=== PATIENT | male | born 1945 | race Caucasian/White ===

== ENCOUNTER 2018-02-28 22:49 | Emergency (ER) | payer BC, MEDICARE ==
[2018-02-28] MEDS ORDERED: Adenosine* 3 MG/ML VIAL IV ONE (23:00)
[2018-02-28] MEDS ORDERED: NS 0.9% 1000 ML* 1,000 ML IV ONE (23:05)
[2018-02-28] MEDS ORDERED: Adenosine SYRINGE* 6 MG/2 ML IV PUSH ONE ×2 (23:05→23:48)
[2018-02-28 23:20] LABS: ABS Basophils 0.1 10^3/ul (0-0.2); ABS Eosinophils 0.3 10^3/ul (0-0.6); ABS Lymphocytes 2.5 10^3/ul (1.0-4.8); ABS Monocytes 0.8 10^3/ul (0-0.8); ABS Neutrophils 4.3 10^3/ul (1.5-7.7); ABS Nucleated RBC 0 10^3/ul; Eosinophil % 4.2 % (0-6); Hematocrit 45 % (42-52); Hemoglobin 14.8 g/dl (14.0-18.0); Lymphocyte % 31.3 % (25-47); Mean Corpuscular HGB Conc 33 g/dl (31-36); Mean Corpuscular Hemoglobin 30 pg (27-31); Mean Corpuscular Volume 90 fL (80-94); Mean Platelet Volume 10.2 um3 (7.4-10.4); Nucleated Red Blood Cells % 0.1; Platelet Count 168 10^3/ul (150-450); Red Blood Count 4.97 10^6/ul (4.0-5.4); Red Cell Distribution Width 15 % (10.5-15)
[2018-02-28 23:32] LABS: INR 0.86 (0.77-1.02)
[2018-02-28 23:37] LABS: EGFR Non-African American 51.5 (>60)
[2018-03-01] MEDS ORDERED: Metoprolol Tartrate TAB* 25 MG PO ONE (00:15)
[2018-03-01 00:31] VITALS: BP 139/66
--- NOTE | 2018-03-01 03:05 | ED ---
Ajith Johnson Julia, scribed for Manjinder Sexton MD on 02/28/18 at 2313 . Palpitations / Dysrhythmia - HPI Summary HPI Summary: This patient is a 72 year old M presenting to [facility] accompanied by his with a chief complaint of palpitations, described as fast, and chest pressure for the past 30 minutes. He states he has had similar symptoms previously, roughly 6 times. He denies syncope and nausea. - History of Current Complaint Chief Complaint: EDChestPainROMI Hx Obtained From: Patient Onset/Duration: Lasting Minutes Timing: Constant Character: Fast Associated Signs & Symptoms: Chest Pain - "tightness" - Allergy/Home Medications Allergies/Adverse Reactions: Allergies Allergy/AdvReac Type Severity Reaction Status Date / Time No Known Allergies Allergy Verified 03/21/14 16:14 PMH/Surg Hx/FS Hx/Imm Hx Endocrine/Hematology History: Denies: Hx Anemia Cardiovascular History: Reports: Other Cardiovascular Problems/Disorders - palpitations EENT History: Denies: Hx Deafness Infectious Disease History: No Infectious Disease History: Denies: Traveled Outside the [place] in Last 30 Days - Family History Known Family History: Positive: Hypertension - Social History Alcohol Use: Occasionally Substance Use Type: Reports: None Review of Systems Positive: Palpitations, Chest Pain Negative: Nausea Negative: Syncope All Other Systems Reviewed And Are Negative: Yes Physical Exam - Summary Physical Exam Summary: VITAL SIGNS: Reviewed. GENERAL: Patient is a well-developed and nourished male who is lying comfortable in the stretcher. Patient is not in any acute respiratory distress. HEAD AND FACE: No signs of trauma. No ecchymosis, hematomas or skull depressions. No sinus tenderness. EYES: PERRLA, EOMI x 2, No injected conjunctiva, no nystagmus. EARS: Hearing grossly intact. Ear canals and tympanic membranes are within normal limits. MOUTH: Oropharynx within normal limits. NECK: Supple, trachea is midline, no adenopathy, no JVD, no carotid bruit, no c- spine tenderness, neck with full ROM. CHEST: Symmetric, no tenderness at palpation LUNGS: Clear to auscultation bilaterally. No wheezing or crackles. CVS: Regular rhythm, tachycardic rate S1 and S2 present, no murmurs or gallops appreciated. ABDOMEN: Soft, non-tender. No signs of distention. No rebound no guarding, and no masses palpated. Bowel sounds are normal. EXTREMITIES: FROM in all major joints, no edema, no cyanosis or clubbing. NEURO: Alert and oriented x 3. No acute neurological deficits. Speech is normal and follows commands. SKIN: Dry and warm Triage Information Reviewed: Yes Vital Signs On Initial Exam: Initial Vitals Temp Pulse Resp BP Pulse Ox 96.7 F 181 24 170/109 96 02/28/18 22:50 02/28/18 22:50 02/28/18 22:50 02/28/18 22:50 02/28/18 22:50 Vital Signs Reviewed: Yes Diagnostics - Vital Signs Vital Signs Temp Pulse Resp BP Pulse Ox 02/28/18 22:50 96.7 F 181 24 170/109 96 - Laboratory Result Diagrams: 02/28/18 23:09 02/28/18 23:09 Lab Statement: Any lab studies that have been ordered have been reviewed, and results considered in the medical decision making process. - EKG 2255 Cardiac Rate: Tachycardia - 173 BPM EKG Rhythm: SVT EKG Interpretation: LVH with strain 2319 Cardiac Rate: NL EKG Rhythm: Sinus Rhythm - 70 BPM EKG Interpretation: LVH with stain, no acute ischemic changes Course/Dx - Course Course Of Treatment: 72 year old M presenting to [facility] [place] [place] accompanied by his with a chief complaint of palpitations, described as fast, and chest pressure for the past 30 minutes. First EKG reveals SVT and tachycardia at 173 BPM with LVH. Patient is given IV fluids, Lopressor, 12mg IV Adenosine, and 6mg IV Adenosine. A second EKG is NSR at 70 BPM with LVH. SVT resolved while in ED and is asymptomatic. Pt has no chest pain. Patient wants to go home. Patient will be discharged with a prescription for Toporol and is instructed to follow up with his rock picker. Patient is agreeable with this plan. - Diagnoses Provider Diagnoses: SVT (supraventricular tachycardia) Discharge - Sign-Out/Discharge Documenting (check all that apply): Discharge/Admit/Transfer - Discharge Plan Condition: Stable Disposition: HOME Prescriptions: Metoprolol Succinate XL TAB* [Toprol XL TAB*] 25 mg PO DAILY #30 tab.xl Patient Education Materials: Supraventricular Tachycardia (ED) Referrals: Roderick Hartman MD [Primary Care Provider] - Additional Instructions: Follow up with your rock picker as planned. RETURN TO EMERGENCY DEPARTMENT FOR ANY NEW OR WORSENING SYMPTOMS The documentation as recorded by the Ajith johnson Julia accurately reflects the service I personally performed and the decisions made by me, Manjinder Sexton MD.
== END 2018-03-01 00:40 | disposition home or self-care (01) ==
LOC: ED 22:49
DX: I47.1 Supraventricular tachycardia (principal); R07.89 Other chest pain
CPT/HCPCS: 36415; 80053; 83605; 83735; 83880; 84484; 85025; 85610; 85730; 93005; 96374; 99284; J0153

== ENCOUNTER 2018-08-18 23:54 | Emergency (ER) | payer MEDICARE ==
[2018-08-19] MEDS ORDERED: Adenosine* 3 MG/ML VIAL IV PUSH ONE (00:05)
[2018-08-19] MEDS ORDERED: Adenosine* 3 MG/ML VIAL ONE ×2 (00:10→00:14)
[2018-08-19 00:52] LABS: Hematocrit 40 % (42-52); Hemoglobin 13.7 g/dl (14.0-18.0); Mean Corpuscular HGB Conc 34 g/dl (31-36); Mean Corpuscular Hemoglobin 30 pg (27-31); Mean Corpuscular Volume 89 fL (80-94); Mean Platelet Volume 9.5 fL (7.4-10.4); Platelet Count 155 10^3/ul (150-450); Red Blood Count 4.53 10^6/ul (4.00-5.40); Red Cell Distribution Width 14 % (10.5-15); White Blood Count 6.5 10^3/ul (3.5-10.8)
[2018-08-19 01:00] LABS: INR 0.86 (0.77-1.02)
[2018-08-19 01:10] LABS: ABS Basophils 0.1 10^3/ul (0-0.2); ABS Eosinophils 0.2 10^3/ul (0-0.6); ABS Lymphocytes 1.4 10^3/ul (1.0-4.8); ABS Monocytes 0.6 10^3/ul (0-0.8); ABS Neutrophils 4.2 10^3/ul (1.5-7.7); ABS Nucleated RBC 0 10^3/ul; Eosinophil % 3.7 % (0-6); Lymphocyte % 21.6 % (25-47); Nucleated Red Blood Cells % 0.2
[2018-08-19 01:12] LABS: EGFR Non-African American 52.4 (>60)
--- NOTE | 2018-08-19 01:45 | ED ---
HPI Cardiac - HPI Summary HPI Summary: Patient is a 72 y/o M w/ c/o palpitations and chest pressure onsetting simultaneously thirty minutes ago. He denies any other Sx. Patient reports that he was falling asleep in his chair when Sx onset. PMHx of SVT is noted. He states his last episode was about three months ago, was seen at [facility] and converted to NSR. Patient states he has had several other episodes as well. Patient also notes he has a planned AVR in September. In room, pulse is 164. On triage, pain is denied, nothing is noted to aggravate/alleviate Sx. Home medications and allergies are reviewed. - History of Current Complaint Chief Complaint: EDDysrhythmPalp Stated Complaint: CHEST PAIN Time Seen by Provider: 08/19/18 00:05 Hx Obtained From: Patient Onset/Duration: Started Minutes Ago - 30 minutes, Still Present Timing: Constant Current Severity: None Pain Intensity: 0 Pain Scale Used: 0-10 Numeric - 0/10 Character: Pressure/Squeezing Aggravating Factor(s): Nothing Alleviating Factor(s): Nothing Associated Signs and Symptoms: Positive: Palpitations, Other: - CHEST PRESSURE - Allergy/Home Medications Allergies/Adverse Reactions: Allergies Allergy/AdvReac Type Severity Reaction Status Date / Time No Known Allergies Allergy Verified 03/21/14 16:14 Home Medications: Home Medications Aspirin 81 mg CHEW TAB* 81 mg PO DAILY 08/19/18 [History Confirmed 08/19/18] hydroCHLOROthiazide [Hydrochlorothiazide] 12.5 mg PO DAILY 08/19/18 [History Confirmed 08/19/18] PMH/Surg Hx/FS Hx/Imm Hx Endocrine/Hematology History: Denies: Hx Anemia Cardiovascular History: Reports: Hx Supraventricular Ventricular Tachycardia, Other Cardiovascular Problems/Disorders - palpitations Sensory History: Denies: Hx Deafness Infectious Disease History: No Infectious Disease History: Denies: Traveled Outside the [place] in Last 30 Days - Family History Known Family History: Positive: Hypertension - Social History Alcohol Use: Occasionally Alcohol Amount: "little vine" Substance Use Type: Reports: None Smoking Status (MU): Current Every Day Smoker Review of Systems Negative: Fever - ON VITALS, TEMP IS 96.9 F Positive: Palpitations, Other - CHEST PRESSURE All Other Systems Reviewed And Are Negative: Yes Physical Exam - Summary Physical Exam Summary: VITAL SIGNS: Reviewed. GENERAL: Patient is a well-developed and nourished male who is lying comfortable in the stretcher. Patient is not in any acute respiratory distress. HEAD AND FACE: No signs of trauma. No ecchymosis, hematomas or skull depressions. No sinus tenderness. EYES: PERRLA, EOMI x 2, No injected conjunctiva, no nystagmus. EARS: Hearing grossly intact. Ear canals and tympanic membranes are within normal limits. MOUTH: Oropharynx within normal limits. NECK: Supple, trachea is midline, no adenopathy, no JVD, no carotid bruit, no c- spine tenderness, neck with full ROM. CHEST: Symmetric, no tenderness at palpation LUNGS: Clear to auscultation bilaterally. No wheezing or crackles. CVS: Tachycardia, S1 and S2 present, no murmurs or gallops appreciated. ABDOMEN: Soft, non-tender. No signs of distention. No rebound no guarding, and no masses palpated. Bowel sounds are normal. EXTREMITIES: FROM in all major joints, no edema, no cyanosis or clubbing. NEURO: Alert and oriented x 3. No acute neurological deficits. Speech is normal and follows commands. SKIN: Dry and warm Triage Information Reviewed: Yes Vital Signs On Initial Exam: Initial Vitals Temp Pulse Resp BP Pulse Ox 96.9 F 168 20 146/83 97 08/18/18 23:56 08/18/18 23:56 08/18/18 23:56 08/18/18 23:56 08/18/18 23:56 Vital Signs Reviewed: Yes Diagnostics - Vital Signs Vital Signs Temp Pulse Resp BP Pulse Ox 08/19/18 01:36 61 21 125/60 99 08/19/18 01:31 63 19 123/66 98 08/19/18 01:26 62 22 120/56 98 08/19/18 01:21 62 22 125/51 99 08/19/18 01:16 65 23 128/63 98 08/19/18 01:11 63 24 122/61 97 08/19/18 01:06 63 23 131/59 99 08/19/18 01:01 63 24 133/52 99 08/19/18 01:00 66 24 98 08/19/18 00:56 66 26 129/56 98 08/19/18 00:51 62 22 125/59 98 08/19/18 00:46 66 24 132/59 98 08/19/18 00:41 64 24 130/64 99 08/19/18 00:36 63 22 133/61 97 08/19/18 00:19 64 19 98 08/19/18 00:10 160 99 08/19/18 00:05 163 139/108 99 08/18/18 23:56 96.9 F 168 20 146/83 97 - Laboratory Lab Results: Lab Results 08/19/18 08/19/18 08/19/18 Range/Units 00:43 00:43 00:43 WBC 6.5 (3.5-10.8) 10^3/ul RBC 4.53 (4.00-5.40) 10^6/ul Hgb 13.7 L (14.0-18.0) g/dl Hct 40 L (42-52) % MCV 89 (80-94) fL MCH 30 (27-31) pg MCHC 34 (31-36) g/dl RDW 14 (10.5-15) % Plt Count 155 (150-450) 10^3/ul MPV 9.5 (7.4-10.4) fL Neut % (Auto) 63.6 (38-83) % Lymph % (Auto) 21.6 L (25-47) % Broome % (Auto) 9.9 H (0-7) % Eos % (Auto) 3.7 (0-6) % Baso % (Auto) 1.2 (0-2) % Absolute Neuts (auto) 4.2 (1.5-7.7) 10^3/ul Absolute Lymphs (auto) 1.4 (1.0-4.8) 10^3/ul Absolute Monos (auto) 0.6 (0-0.8) 10^3/ul Absolute Eos (auto) 0.2 (0-0.6) 10^3/ul Absolute Basos (auto) 0.1 (0-0.2) 10^3/ul Absolute Nucleated RBC 0 10^3/ul Nucleated RBC % 0.2 INR (Anticoag Therapy) 0.86 (0.77-1.02) APTT 37.6 H (26.0-36.3) seconds Sodium 139 (135-145) mmol/L Potassium 4.0 (3.5-5.0) mmol/L Chloride 105 (101-111) mmol/L Carbon Dioxide 29 (22-32) mmol/L Anion Gap 5 (2-11) mmol/L BUN 23 (6-24) mg/dL Creatinine 1.34 H (0.67-1.17) mg/dL Est GFR ( Amer) 63.4 (>60) Est GFR (Non-Af Amer) 52.4 (>60) BUN/Creatinine Ratio 17.2 (8-20) Glucose 158 H (70-100) mg/dL Lactic Acid (0.5-2.0) mmol/L Calcium 8.9 (8.6-10.3) mg/dL Magnesium 2.1 (1.9-2.7) mg/dL Total Bilirubin 0.50 (0.2-1.0) mg/dL AST 33 (13-39) U/L ALT 30 (7-52) U/L Alkaline Phosphatase 53 (34-104) U/L Troponin I 0.01 (<0.04) ng/mL Total Protein 6.7 (6.4-8.9) g/dL Albumin 3.8 (3.2-5.2) g/dL Globulin 2.9 (2-4) g/dL Albumin/Globulin Ratio 1.3 (1-3) TSH 3.83 (0.34-5.60) mcIU/mL 08/19/18 Range/Units 00:43 WBC (3.5-10.8) 10^3/ul RBC (4.00-5.40) 10^6/ul Hgb (14.0-18.0) g/dl Hct (42-52) % MCV (80-94) fL MCH (27-31) pg MCHC (31-36) g/dl RDW (10.5-15) % Plt Count (150-450) 10^3/ul MPV (7.4-10.4) fL Neut % (Auto) (38-83) % Lymph % (Auto) (25-47) % Broome % (Auto) (0-7) % Eos % (Auto) (0-6) % Baso % (Auto) (0-2) % Absolute Neuts (auto) (1.5-7.7) 10^3/ul Absolute Lymphs (auto) (1.0-4.8) 10^3/ul Absolute Monos (auto) (0-0.8) 10^3/ul Absolute Eos (auto) (0-0.6) 10^3/ul Absolute Basos (auto) (0-0.2) 10^3/ul Absolute Nucleated RBC 10^3/ul Nucleated RBC % INR (Anticoag Therapy) (0.77-1.02) APTT (26.0-36.3) seconds Sodium (135-145) mmol/L Potassium (3.5-5.0) mmol/L Chloride (101-111) mmol/L Carbon Dioxide (22-32) mmol/L Anion Gap (2-11) mmol/L BUN (6-24) mg/dL Creatinine (0.67-1.17) mg/dL Est GFR ( Amer) (>60) Est GFR (Non-Af Amer) (>60) BUN/Creatinine Ratio (8-20) Glucose (70-100) mg/dL Lactic Acid 1.6 (0.5-2.0) mmol/L Calcium (8.6-10.3) mg/dL Magnesium (1.9-2.7) mg/dL Total Bilirubin (0.2-1.0) mg/dL AST (13-39) U/L ALT (7-52) U/L Alkaline Phosphatase (34-104) U/L Troponin I (<0.04) ng/mL Total Protein (6.4-8.9) g/dL Albumin (3.2-5.2) g/dL Globulin (2-4) g/dL Albumin/Globulin Ratio (1-3) TSH (0.34-5.60) mcIU/mL Result Diagrams: 08/19/18 00:43 08/19/18 00:43 Lab Statement: Any lab studies that have been ordered have been reviewed, and results considered in the medical decision making process. - EKG 0025 Cardiac Rate: NL - rate of 64 bpm EKG Rhythm: Sinus Rhythm Summary of EKG Findings: Post adenosine EKG showed normal sinus rhythm with rate of 64 BPM, first degree AV block, LVH with strain. Re-Evaluation - Re-Evaluation First Eval Re-Evaluation Time: 01:39 Comment: Labs and treatment were discussed with patient, he is agreeable with discharge to home and PCP follow up. Disposition - Course Course Of Treatment: Patient is a 72 y/o M w/ c/o palpitations and chest pressure onsetting simultaneously thirty minutes ago. He denies any other Sx. Patient reports that he was falling asleep in his chair when Sx onset. PMHx of SVT is noted. He states his last episode was about three months ago, was seen at [facility] and converted to NSR. Patient states he has had several other episodes as well. Patient also notes he has a planned AVR in September. In room, pulse is 164. On physical exam, patient is noted to be tachycardic. Patient was given 6 mg adenosine, then 12 mg. After 12 mg, patient converted to sinus rhythm. Post adenosine EKG showed NSR with rate of 64 BPM, first degree AV block, LVH with strain. Labs showed TSH 3.83, trop 0.01, lactic acid 1.6, glucose 158, creatinine 1.34, APTT 37.6, mono% 9.9, lymph% 21.6, Hct 40, Hgb 13.7. Labs and treatment were discussed with patient, he is agreeable with discharge to home and PCP follow up. Dx of SVT. - Diagnoses Provider Diagnoses: SVT (supraventricular tachycardia) Discharge - Sign-Out/Discharge Documenting (check all that apply): Patient Departure - discharge - Discharge Plan Condition: Stable Disposition: HOME Patient Education Materials: Supraventricular Tachycardia (ED) Referrals: Roderick Hartman MD [Primary Care Provider] - 2 Days Additional Instructions: RETURN TO THE EMERGENCY DEPARTMENT FOR CHANGING OR WORSENING SYMPTOMS. FOLLOW UP WITH PRIMARY CARE PHYSICIAN IN 1-2 DAYS - Attestation Statements Document Initiated by Scribe: Yes Documenting Scribe: SKYE FREDERICK Provider For Whom Jacob is Documenting (Include Credential): LAURA MORA MD Scribe Attestation: SKYE Johnson , radha for LAURA MORA MD on 08/19/18 at 0310.
[2018-08-19 02:10] VITALS: BP 131/59
[2018-08-20] MEDS ORDERED: Adenosine* 3 MG/ML VIAL IV PUSH ONE (23:57)
== END 2018-08-19 02:07 | disposition home or self-care (01) ==
LOC: ED 23:54
DX: I47.1 Supraventricular tachycardia (principal); R07.9 Chest pain, unspecified; R00.2 Palpitations; F17.210 Nicotine dependence, cigarettes, uncomplicated
CPT/HCPCS: 36415; 80053; 83605; 83735; 84443; 84484; 85025; 85610; 85730; 93005; 96374; 96376; 99284; J0153

== ENCOUNTER 2018-09-01 10:58 | Emergency (ER) | payer MEDICARE ==
--- NOTE | 2018-09-01 11:12 | ED ---
HPI Chest Pain - HPI Summary HPI Summary: A 72 y/o male brought in by [facility] [employer] ambulance presents to the ED with a chief complaint of chest pain since 10:30 09/01/18. The patient felt CP when he was at the dentists office getting his teeth cleaned. Per the patient when he was leaning back and being given lidocaine his CP felt heavy and felt his heart was pounding for about 5 minutes. He currently rates his pain as 0/10 and states that he is pain free. The patient endorses mouth numbness. He is taking medication for his Hx of arrhythmia. He claims that his BP is usually around 140/60. The patient reports that he needed dental records for a clinical trial at [facility] scheduled for Sep [address] Gupta. The patient claims that he wants to do the clinical trial because he is too healthy. The patient claims that he has been in the ED two weeks ago where Dr. Abel wanted to keep the patient in the ED because he failed every aspect of his stress test but the patient left the ED. The next day Dr. Abel called the patient advising him to come back into the ED, but the patient wanted a second opinion in [place]. Per the patient the stress test at [place] was unremarkable. The patient claims the last two times he has been in the ED his HR was 186 and 176. The patient denies leg pain or swelling, Fever, Chills, Erythema (eyes), Sore throat Shortness of Breath, Cough, Abdominal pain, Vomiting, Nausea, Dysuria, Hematuria, Edema, Rash and Dizziness. Per family, the patient is in denial that he has a problem and the patient is not on abx. - History of Current Complaint Chief Complaint: EDChestWallPain Time Seen by Provider: 09/01/18 11:03 Hx Obtained From: Patient, Family/Chip Tester, EMS Onset/Duration: Started Hours Ago, Resolved Timing: Lasting Minutes Initial Severity: Moderate Current Severity: Moderate Pain Intensity: 0 Pain Scale Used: 0-10 Numeric Chest Pain Location: Diffuse Chest Pain Radiates: No Character: Other: - Heavy, pounding Aggravating Factor(s): Nothing Alleviating Factor(s): Nothing Associated Signs and Symptoms: Positive: Numbness - mouth. Negative: Cough, Other: - leg pain - Allergy/Home Medications Allergies/Adverse Reactions: Allergies Allergy/AdvReac Type Severity Reaction Status Date / Time No Known Allergies Allergy Verified 08/30/18 14:44 Home Medications: Home Medications Aspirin EC TAB* [Ecotrin EC Low Dose 81 MG*] 81 mg PO DAILY 09/01/18 [History Confirmed 09/01/18] Hydrochlorothiazide TAB* [Hydrodiuril TAB*] 12.5 mg PO DAILY 09/01/18 [History Confirmed 09/01/18] PMH/Surg Hx/FS Hx/Imm Hx Endocrine/Hematology History: Denies: Hx Anemia Cardiovascular History: Reports: Other Cardiovascular Problems/Disorders - palpitations, arrythmia Sensory History: Denies: Hx Deafness Infectious Disease History: No Infectious Disease History: Denies: Traveled Outside the [place] in Last 30 Days - Family History Known Family History: Positive: Hypertension - Social History Alcohol Use: Occasionally Alcohol Amount: "little vine" Substance Use Type: Reports: None Smoking Status (MU): Current Every Day Smoker Review of Systems Negative: Fever, Chills Negative: Erythema Negative: Sore Throat Positive: Palpitations, Chest Pain Negative: Shortness Of Breath, Cough Negative: Abdominal Pain, Vomiting, Nausea Negative: dysuria, hematuria Negative: Myalgia - leg pain, Edema - leg swelling Negative: Rash Neurological: Negative - dizziness Positive: Numbness - mouth All Other Systems Reviewed And Are Negative: Yes Physical Exam - Summary Physical Exam Summary: Constitutional: Well-developed, Well-nourished, Alert. (-) Distressed Skin: Warm, Dry HENT: Normocephalic; Atraumatic Eyes: Conjunctiva normal Neck: Musculoskeletal ROM normal neck. (-) JVD, (-) Stridor, (-) Tracheal deviation Cardio: Rhythm regular, rate normal, Intact distal pulses; The pedal pulses are 2+ and symmetric. Radial pulses are 2+ and symmetric. (+) systolic ejection murmur Pulmonary/Chest wall: Effort normal. (-) Respiratory distress, (-) Wheezes, (-) Rales Abd: Soft, (-) epigastric tenderness, (-) Distension, (-) Guarding, (-) Rebound Musculoskeletal: (-) Edema Lymph: (-) Cervical adenopathy Neuro: Alert, Oriented x3 Psych: Mood and affect Normal Triage Information Reviewed: Yes Vital Signs On Initial Exam: Initial Vitals Temp Pulse Resp BP Pulse Ox 97.8 F 63 18 168/58 98 09/01/18 11:09 09/01/18 11:09 09/01/18 11:09 09/01/18 11:09 09/01/18 11:09 Vital Signs Reviewed: Yes Diagnostics - Vital Signs Vital Signs Temp Pulse Resp BP Pulse Ox 09/01/18 11:09 97.8 F 63 18 168/58 98 - Laboratory Result Diagrams: 09/01/18 11:31 09/01/18 11:31 Lab Statement: Any lab studies that have been ordered have been reviewed, and results considered in the medical decision making process. - Radiology CXR Radiology Interpretation Completed By: Radiologist Summary of Radiographic Findings: No active cardiopulmonary disease. ED physician has reviewed this imaging report. - EKG 11:17 Cardiac Rate: Bradycardia - 58 bpm EKG Rhythm: Sinus Bradycardia Summary of EKG Findings: no STEMI Re-Evaluation - Re-Evaluation First Eval Re-Evaluation Time: 16:10 Change: Improved Comment: patient is feeling better. Chest Pain Course/Dx - Course Course Of Treatment: A 72 y/o male brought in by [facility] [employer] ambulance presents to the ED with a chief complaint of chest pain since 10:30 09/01/18. The patient felt CP when he was at the dentists office getting his teeth cleaned. Per the patient when he was leaning back and being given lidocaine his CP felt heavy and felt his heart was pounding for about 5 minutes. He currently rates his pain as 0/10 and states that he is pain free. The patient endorses mouth numbness. He is taking medication for his Hx of arrhythmia. He claims that his BP is usually around 140/60. The patient reports that he needed dental records for a clinical trial at [facility] scheduled for Sep [address] Gupta. The patient claims that he wants to do the clinical trial because he is too healthy. The patient claims that he has been in the ED two weeks ago where Dr. Abel wanted to keep the patient in the ED because he failed every aspect of his stress test but the patient left the ED. The next day Dr. Abel called the patient advising him to come back into the ED, but the patient wanted a second opinion in [place]. Per the patient the stress test at [place] was unremarkable. The patient claims the last two times he has been in the ED his HR was 186 and 176. The patient denies leg pain or swelling, Fever, Chills, Erythema (eyes), Sore throat Shortness of Breath, Cough, Abdominal pain, Vomiting, Nausea, Dysuria, Hematuria, Edema, Rash and Dizziness. Per family, the patient is in denial that he has a problem and the patient is not on abx. His PE was remarkable with systolic ejection murmur. His EKG showed sinus bradycardia at 58 bpm with no STEMI. His CXR impression was: no active cardiopulmonary disease. In the ED course the patient was given Aspirin PO. After discussing the patient with Dr. Gupta he recommended discharge and for the patient to follow up with him. The patient will be discharged home and is agreeable with this plan. - Diagnoses Provider Diagnoses: Chest pain, unspecified, Heart palpitations - Provider Notifications Discussed Care Of Patient With: Marlin Padgett Time Discussed With Above Provider: 13:05 Instructed by Provider To: Other - At 13:[address] Padgett. At 14: 00 requested discussing case with [facility] for a possible transfer. Discharge - Sign-Out/Discharge Documenting (check all that apply): Patient Departure - DC - Discharge Plan Condition: Stable Disposition: HOME Patient Education Materials: Chest Pain (ED), Heart Palpitations (ED) Referrals: Roderick Hartman MD [Primary Care Provider] - (3-5 days) Kehinde Gupta MD [Medical Doctor] - (3-5 days) Additional Instructions: FOLLOW UP WITH DR. GUPTA IN 3-5 DAYS. RETURN TO THE EMERGENCY DEPARTMENT FOR CHANGING OR WORSENING SYMPTOMS - Billing Disposition and Condition Condition: STABLE Disposition: Home - Attestation Statements Document Initiated by Jacob: Yes Documenting Scribe: Tommy Nuñez Provider For Whom Jacob is Documenting (Include Credential): Lucian Harrison MD Scribe Attestation: Tommy Johnson, scribed for Lucian Harrison MD on 09/15/18 at 1149. Scribe Documentation Reviewed: Yes Provider Attestation: The documentation as recorded by the Tommy johnson accurately reflects the service I personally performed and the decisions made by me, Lucian Harrison MD Status of Scribe Document: Viewed Consult Consult: At 13:25 discussed case with ROSA M Chavis at [place] who will discuss the case with Dr. Gupta. At 16:00 Dr. Gupta called recommending discharge and the patient to follow up with him.
[2018-09-01] MEDS ORDERED: Aspirin 81 mg CHEW TAB* 81 MG TAB.CHEW PO ONE (11:32)
[2018-09-01 11:38] LABS: ABS Basophils 0.1 10^3/ul (0-0.2); ABS Eosinophils 0.1 10^3/ul (0-0.6); ABS Monocytes 0.7 10^3/ul (0-0.8); ABS Neutrophils 4.2 10^3/ul (1.5-7.7); ABS Nucleated RBC 0 10^3/ul; Eosinophil % 2.3 %; Hematocrit 43 % (42-52); Hemoglobin 14.2 g/dl (14.0-18.0); Lymphocyte % 16.6 %; Mean Corpuscular HGB Conc 34 g/dl (31-36); Mean Corpuscular Hemoglobin 30 pg (27-31); Mean Corpuscular Volume 88 fL (80-94); Mean Platelet Volume 9.2 fL (7.4-10.4); Nucleated Red Blood Cells % 0.1; Platelet Count 154 10^3/ul (150-450); Red Blood Count 4.81 10^6/ul (4.00-5.40); Red Cell Distribution Width 14 % (10.5-15); White Blood Count 6.1 10^3/ul (3.5-10.8)
[2018-09-01 11:55] LABS: Albumin 4.2 g/dL (3.2-5.2); Albumin/Globulin Ratio 1.4 (1-3); BUN/Creatinine Ratio 13.1 (8-20); Calcium 9.2 mg/dL (8.6-10.3); EGFR Non-African American 58.4 (>60); Globulin 2.9 g/dL (2-4); Potassium 4.6 mmol/L (3.5-5.0); Total Protein 7.1 g/dL (6.4-8.9)
[2018-09-01 16:44] VITALS: BP 165/80
== END 2018-09-01 16:42 | disposition home or self-care (01) ==
LOC: ED 10:58
DX: R07.9 Chest pain, unspecified (principal); R00.2 Palpitations
CPT/HCPCS: 36415; 71045; 80053; 83605; 84484; 85025; 93005; 99282